=== PATIENT | female | born 1990 | race Two or more races ===

== ENCOUNTER 2017-10-25 12:23 | Inpatient (IN) | payer OTHER ==
--- NOTE | 2017-10-25 13:17 | PDOC ---
History of Present Illness - General History Source: Patient Exam Limitations: No Limitations - History of Present Illness Initial Comments: 10/25/17 13:37 The patient is a 27 year old female, with a significant past medical history of HLD (not on any medications) who presents to the emergency department with RLQ abdominal pain today. Patient reports pain began this morning, cramping, intermittent, 6/10 in severity with associated nausea and diarrhea (nonmucoid, nonbloody). Patient has hx of Cholecystectomy in 2007 and reports pain is similar in nature. Patient denies taking any pain medications for relief and presents to the ED for further evaluation. Patient denies chest pain, headache or dizziness. Patient denies fever, chills, vomit, or constipation. Patient denies dysuria, frequency, urgency or hematuria. Patient denies sick contacts or recent travel. Allergies: NKA Past surgical history: Cholecystectomy, tonsillectomy Social history: None <Ary Mitchell - Last Filed: 10/25/17 18:06> <Jagdeep Abrams - Last Filed: 10/25/17 18:24> - General Chief Complaint: Pain Stated Complaint: ABD PAIN Time Seen by Provider: 10/25/17 13:16 Past History <Ary Mitchell - Last Filed: 10/25/17 18:06> - Past Medical History COPD: No Hypercholesterolemia: Yes - Surgical History Cholecystectomy: Yes - Suicide/Smoking/Psychosocial Hx Smoking History: Never smoked Information on smoking cessation initiated: No Hx Alcohol Use: Yes (OCC) Drug/Substance Use Hx: No Substance Use Type: None <Jagdeep Abrams - Last Filed: 10/25/17 18:24> - Past Medical History Allergies/Adverse Reactions: Allergies Allergy/AdvReac Type Severity Reaction Status Date / Time No Known Allergies Allergy Verified 10/25/17 12:53 Home Medications: Ambulatory Orders NK [No Known Home Medication] 10/25/17 Review of Systems - Review of Systems Able to Perform ROS?: Yes Comments:: 10/25/17 13:37 GENERAL/CONSTITUTIONAL: No fever or chills. No weakness. HEAD, EYES, EARS, NOSE AND THROAT: No change in vision. No ear pain or discharge. No sore throat. CARDIOVASCULAR: No chest pain or shortness of breath. RESPIRATORY: No cough, wheezing, or hemoptysis. GASTROINTESTINAL: + RLQ pain. + nausea, diarrhea. No vomiting or constipation. GENITOURINARY: No dysuria, frequency, or change in urination. MUSCULOSKELETAL: No joint or muscle swelling or pain. No neck or back pain. SKIN: No rash NEUROLOGIC: No headache, vertigo, loss of consciousness, or change in strength/ sensation. ENDOCRINE: No increased thirst. No abnormal weight change. HEMATOLOGIC/LYMPHATIC: No anemia, easy bleeding, or history of blood clots. ALLERGIC/IMMUNOLOGIC: No hives or skin allergy. <Ary Mitchell - Last Filed: 10/25/17 18:06> *Physical Exam - Vital Signs Last Vital Signs Temp Pulse Resp BP Pulse Ox 98.5 F 98 H 18 139/85 100 10/25/17 12:54 10/25/17 12:54 10/25/17 12:54 10/25/17 12:54 10/25/17 12:54 - Physical Exam Comments: 10/25/17 13:37 GENERAL: Awake, alert, and fully oriented, in no acute distress HEAD: No signs of trauma EYES: PERRLA, EOMI, sclera anicteric, conjunctiva clear ENT: Auricles normal inspection, hearing grossly normal, nares patent, oropharynx clear without exudates. Moist mucosa NECK: Normal ROM, supple, no lymphadenopathy, JVD, or masses LUNGS: Breath sounds equal, clear to auscultation bilaterally. No wheezes, and no crackles HEART: Regular rate and rhythm, normal S1 and S2, no murmurs, rubs or gallops ABDOMEN: +Diffuse tenderness. Normoactive bowel sounds. No guarding, no rebound. No masses EXTREMITIES: Normal range of motion, no edema. No clubbing or cyanosis. No cords, erythema, or tenderness NEUROLOGICAL: Cranial nerves II through XII grossly intact. Normal speech, normal gait SKIN: Warm, Dry, normal turgor, no rashes or lesions noted. <Ary Mitchell - Last Filed: 10/25/17 18:06> - Vital Signs Last Vital Signs Temp Pulse Resp BP Pulse Ox 98.5 F 98 H 18 139/85 100 10/25/17 12:54 10/25/17 12:54 10/25/17 12:54 10/25/17 12:54 10/25/17 12:54 <Jagdeep Abrams - Last Filed: 10/25/17 18:24> ED Treatment Course - LABORATORY CBC & Chemistry Diagram: 10/25/17 13:49 10/25/17 13:49 <Ary Mitchell - Last Filed: 10/25/17 18:06> - LABORATORY CBC & Chemistry Diagram: 10/25/17 13:49 10/25/17 13:49 <Jagdeep Abrams - Last Filed: 10/25/17 18:24> Medical Decision Making - Medical Decision Making 10/25/17 18:06 Dr. Schrader paged via phone answering service. Awaiting call back . <Ary Mitchell - Last Filed: 10/25/17 18:06> *DC/Admit/Observation/Transfer - Attestations Scribe Attestion: 10/25/17 13:37 Documentation prepared by Ary Mitchell, acting as medical records library professor for Jagdeep Abrams DO. <Ary Mitchell - Last Filed: 10/25/17 18:06> - Discharge Dispostion Admit: Yes - Attestations Physician Attestion: 10/25/17 13:17 I, Dr. Jagdeep Abrams, attest that this document has been prepared under my direction and personally reviewed by me in its entirety. I further attest, that it accurately reflects all work, treatment, procedures and medical decision -making performed by me. <Jagdeep Abrams - Last Filed: 10/25/17 18:24> Diagnosis at time of Disposition: Elevated liver enzymes Abdominal pain Qualifiers: Abdominal location: generalized Qualified Code(s): R10.84 - Generalized abdominal pain - Discharge Dispostion Condition at time of disposition: Improved
[2017-10-25] MEDS ORDERED: ONDANSETRON 4 MG/2 ML VIAL IVPUSH ONE ×2 (13:24→19:50)
[2017-10-25] MEDS ORDERED: morphine CARPU-JECT 4 MG/1 ML DISP.SYRIN IVPUSH ONE ×2 (13:24→15:05)
[2017-10-25] MEDS ORDERED: ONDANSETRON 4 MG/2 ML VIAL ONE ×2 (13:48→19:52)
[2017-10-25] MEDS ORDERED: morphine SULFATE 4 MG/ML VIAL ONE ×2 (13:48→15:17)
[2017-10-25 14:02] LABS: BASOPHIL 0.2 % (0-2.0); EOSINOPHIL 0.2 % (0-4.5); MCH 27.1 pg (25.7-33.7); MCHC 32.8 g/dl (32.0-36.0); MEAN CELL VOLUME 82.5 fl (80-96); MEAN PLT VOLUME 7.4 fl (7.5-11.1); NEUTROPHILS 87.1 % (42.8-82.8); PLATELET COUNT 348 K/MM3 (134-434); RDW 15.3 % (11.6-15.6); WHITE BLOOD COUNT 10.9 K/mm3 (4.0-10.0)
[2017-10-25 14:05] LABS: URINE APPEARANCE SLCLOUDY; URINE BILIRUBIN NEGATIVE (NEGATIVE); URINE BLOOD 2+ (NEGATIVE); URINE COLOR AMBER; URINE GLUCOSE (UA) NEGATIVE (NEGATIVE); URINE KETONE TRACE (NEGATIVE); URINE NITRITE NEGATIVE (NEGATIVE)
[2017-10-25 14:10] LABS: URINE LEUK ESTERASE 1+ (NEGATIVE); URINE PROTEIN 1+ (NEGATIVE)
[2017-10-25 14:27] LABS: INR 1.15 (0.82-1.09)
[2017-10-25 14:32] LABS: URINE MUCUS MANY; URINE RBC 9 /hpf (0-3); URINE WBC 18 /hpf (3-5)
[2017-10-25 14:37] LABS: ALBUMIN 3.7 g/dl (3.4-5.0); ANION GAP 8 (8-16); CALCIUM 8.8 mg/dL (8.5-10.1); CO2 27 mmol/L (21-32); GLUCOSE,RANDOM 107 mg/dL (74-106); SGPT/ALT 146 U/L (12-78)
[2017-10-25 14:53] LABS: ALK PHOS 129 U/L (45-117); BILIRUBIN,TOTAL 0.8 mg/dL (0.2-1.0); CREATININE 0.6 mg/dL (0.55-1.02); SGOT/AST 323 U/L (15-37); TOT PROT 7.2 g/dl (6.4-8.2)
[2017-10-25] MEDS ORDERED: cefTRIAXone 1 GM/50 ML BAG (PRE-DOCKED) IVPB ONE (17:08)
[2017-10-25] MEDS ORDERED: SODIUM CHLORIDE 1,000 ML IV STA (17:08)
[2017-10-25] MEDS ORDERED: CEFTRIAXONE 1 GM/50 ML BAG ONE (17:16)
[2017-10-25] MEDS ORDERED: HYDROmorphone HCL CARPU-JECT 2 MG/1 ML DISP.SYRIN IVPUSH ONE (18:13)
[2017-10-25] MEDS ORDERED: HYDROmorphone HCL CARPU-JECT 2 MG/1 ML DISP.SYRIN ONE (18:26)
[2017-10-25 21:13] LABS: URINE LEUK ESTERASE NEGATIVE (NEGATIVE)
--- NOTE | 2017-10-25 21:17 | HP ---
Admitting History and Physical - Primary Care Physician PCP: Patrice Schrader - Admission History of Present Illness: 27 year old female, with a significant past medical history of HLD (not on any medications) who presents to the emergency department with RLQ abdominal pain today. Patient reports pain began this morning, cramping, intermittent, 6/10 in severity with associated nausea and diarrhea (nonmucoid, nonbloody). Patient has hx of Cholecystectomy in 2007 and reports pain is similar in nature. Patient denies taking any pain medications for relief and presents to the ED for further evaluation. - Past Medical History Cardiovascular: Yes: Hyperlipdemia ...LMP: 10/18/17 - Past Surgical History Past Surgical History: Yes: Cholecystectomy - Smoking History Smoking history: Never smoked - Alcohol/Substance Use Hx Alcohol Use: Yes (OCC) Home Medications - Allergies Allergies/Adverse Reactions: Allergies Allergy/AdvReac Type Severity Reaction Status Date / Time No Known Allergies Allergy Verified 10/25/17 12:53 - Home Medications Home Medications: Ambulatory Orders NK [No Known Home Medication] 10/25/17 Physical Examination Vital Signs: Vital Signs Temperature 98.5 F 10/25/17 12:54 Pulse Rate 90 10/25/17 18:53 Respiratory Rate 18 10/25/17 18:53 Blood Pressure 129/74 10/25/17 18:53 O2 Sat by Pulse Oximetry (%) 99 10/25/17 18:53 Constitutional: Yes: No Distress HENT: Yes: Atraumatic Neck: Yes: Supple Cardiovascular: Yes: Regular Rate and Rhythm Respiratory: Yes: CTA Bilaterally Gastrointestinal: Yes: Normal Bowel Sounds Extremities: Yes: WNL Neurological: Yes: Alert, Oriented Labs: CBC, BMP 10/25/17 13:49 10/25/17 13:49 Problem List - Problems (1) Abdominal pain Assessment/Plan: npo, ivf prn pain meds Code(s): R10.9 - UNSPECIFIED ABDOMINAL PAIN Qualifiers: Abdominal location: epigastric Qualified Code(s): R10.13 - Epigastric pain (2) Elevated liver enzymes Assessment/Plan: will monitor Code(s): R74.8 - ABNORMAL LEVELS OF OTHER SERUM ENZYMES Assessment/Plan Laboratory Tests 10/25/17 10/25/17 10/25/17 13:49 13:49 13:49 WBC 10.9 H RBC 4.98 Hgb 13.5 Hct 41.1 MCV 82.5 MCH 27.1 MCHC 32.8 RDW 15.3 Plt Count 348 MPV 7.4 L Neutrophils % 87.1 H D Lymphocytes % 7.1 L D Monocytes % 5.4 Eosinophils % 0.2 Basophils % 0.2 PT with INR 13.00 H INR 1.15 H Sodium Potassium Chloride Carbon Dioxide Anion Gap BUN Creatinine Creat Clearance w eGFR Random Glucose Calcium Total Bilirubin AST ALT Alkaline Phosphatase Total Protein Albumin Lipase Serum , Qual Negative Urine Color Urine Appearance Urine pH Ur Specific [place] Urine Protein Urine Glucose (UA) Urine Ketones Urine Blood Urine Nitrite Urine Bilirubin Urine Urobilinogen Ur Leukocyte Esterase Urine WBC (Auto) Urine RBC (Auto) Ur Epithelial Cells Urine Mucus 10/25/17 10/25/17 13:49 13:49 WBC RBC Hgb Hct MCV MCH MCHC RDW Plt Count MPV Neutrophils % Lymphocytes % Monocytes % Eosinophils % Basophils % PT with INR INR Sodium 139 Potassium 3.7 Chloride 104 Carbon Dioxide 27 Anion Gap 8 BUN 9 Creatinine 0.6 Creat Clearance w eGFR > 60 Random Glucose 107 H D Calcium 8.8 Total Bilirubin 0.8 D AST 323 H D ALT 146 H D Alkaline Phosphatase 129 H D Total Protein 7.2 Albumin 3.7 Lipase 200 Serum , Qual Urine Color [place] Urine Appearance Slcloudy Urine pH 5.0 Ur Specific [place] 1.031 Urine Protein 1+ H Urine Glucose (UA) Negative Urine Ketones Trace H Urine Blood 2+ H Urine Nitrite Negative Urine Bilirubin Negative Urine Urobilinogen 2.0 H Ur Leukocyte Esterase Negative Urine WBC (Auto) 18 Urine RBC (Auto) 9 Ur Epithelial Cells Moderate Urine Mucus Many Active Medications Generic Name Dose Route Start Last Admin Trade Name Freq PRN Reason Stop Dose Admin Hydromorphone HCl 1 mg 10/25/17 21:21 10/27/17 18:10 Dilaudid Injection - IVPB 1 mg Q3H PRN Administration PAIN Dextrose/Sodium Chloride 1,000 mls @ 75 mls/hr 10/25/17 21:30 10/27/17 18:14 D5-1/2ns - IV 75 mls/hr ASDIR ISIAH Administration Ondansetron HCl 4 mg 10/25/17 21:21 10/26/17 18:45 Zofran Injection IVPB 4 mg Q4H PRN Administration NAUSEA AND/OR VOMITING Pantoprazole Sodium 40 mg 10/26/17 22:00 10/27/17 09:29 Protonix Iv IVPUSH 40 mg BID ISIAH Administration
[2017-10-25] MEDS: DEXTROSE 5%-0.45% SALINE 1,000 ML IV SCH (22:24)
[2017-10-25] MEDS: HYDROmorphone HCL CARPU-JECT 2 MG/1 ML DISP.SYRIN IVPB PRN (22:36)
[2017-10-26 00:35] VITALS: BMI 34.7
[2017-10-26] MEDS: HYDROmorphone HCL CARPU-JECT 2 MG/1 ML DISP.SYRIN IVPB PRN ×4 (05:59→22:43)
[2017-10-26 09:15] LABS: BASOPHIL 0.4 % (0-2.0); EOSINOPHIL 2.1 % (0-4.5); MCHC 32.7 g/dl (32.0-36.0); MEAN CELL VOLUME 82.5 fl (80-96); MEAN PLT VOLUME 7.5 fl (7.5-11.1); NEUTROPHILS 70.4 % (42.8-82.8); PLATELET COUNT 301 K/MM3 (134-434); WHITE BLOOD COUNT 5.8 K/mm3 (4.0-10.0)
[2017-10-26 09:46] LABS: ALBUMIN 3.3 g/dl (3.4-5.0); ANION GAP 7 (8-16); BILIRUBIN,TOTAL 0.6 mg/dL (0.2-1.0); CALCIUM 8.3 mg/dL (8.5-10.1); CO2 28 mmol/L (21-32); CREATININE 0.5 mg/dL (0.55-1.02); GLUCOSE,RANDOM 93 mg/dL (74-106); SGOT/AST 291 U/L (15-37); SGPT/ALT 284 U/L (12-78); TOT PROT 6.5 g/dl (6.4-8.2)
[2017-10-26 09:47] LABS: ALK PHOS 174 U/L (45-117)
--- NOTE | 2017-10-26 10:52 | CON.GI ---
Consult Consult Specialty:: GI - History of Present Illness History of Present Illness: A healthy 27 yof s/p cholecystectomy in 2007 presents with RUQ pain, elevated AST 2x > ALT, ALP and normal bilirubin. A CT scan of the abdomen and pelvis with IV contrast report describes a 14 mm CBD w/o filling defects, s/p cholecysatectomy, and no other significant hepatobiliary findings. The onset of pain last am, acute, epigastric with nausea, w/o vomiting, fever, chills, jaundice, changes in bowels. Denies dysphagia, odynophagia, melena, chronic etoh , nsaids. At the time of this encounter, c/o epigastric pain, tenderness, negative goodson's. Not in distress. Hungry - History Source History Provided By: Patient, Medical Record - Past Medical History Cardio/Vascular: Yes: Hyperlipdemia ...LMP: 10/18/17 - Past Surgical History Past Surgical History: Yes: Cholecystectomy - Alcohol/Substance Use Hx Alcohol Use: Yes (OCC) - Smoking History Smoking history: Never smoked Home Medications - Allergies Allergies/Adverse Reactions: Allergies Allergy/AdvReac Type Severity Reaction Status Date / Time No Known Allergies Allergy Verified 10/25/17 12:53 - Home Medications Home Medications: Ambulatory Orders NK [No Known Home Medication] 10/25/17 Family Disease History - Family Disease History Family History: Unremarkable Review of Systems Findings/Remarks: please refer to HPI, H&P Physical Exam-GI Vital Signs: Vital Signs Temperature 98.4 F 10/26/17 07:00 Pulse Rate 70 10/26/17 10:12 Respiratory Rate 20 10/26/17 10:12 Blood Pressure 129/84 10/26/17 10:12 O2 Sat by Pulse Oximetry (%) 96 10/26/17 05:20 Constitutional: Yes: Well Nourished, No Distress, Calm Eyes: Yes: Conjunctiva Clear HENT: Yes: Atraumatic Neck: Yes: Supple Cardiovascular: Yes: Regular Rate and Rhythm Respiratory: Yes: Regular Gastrointestinal Inspection: No: Distention ...Auscultate: Yes: Normoactive Bowel Sounds ...Palpate: Yes: Guarding (epigastric), Soft, Tenderness (epigastric), Tenderness, Epigastium. No: Firm/Rigid, Mass, Tenderness, Rebound ...Percussion: No: Fluid Wave Neurological: Yes: Alert, Oriented Labs: CBC, BMP 10/26/17 07:45 10/26/17 07:45 INR, PTT INR 1.15 (0.82-1.09) H 10/25/17 13:49 Laboratory Results - last 24 hr 10/25/17 10/26/17 10/26/17 13:49 07:45 07:45 WBC 5.8 D RBC 4.43 Hgb 12.0 D Hct 36.6 MCV 82.5 MCH 27.0 MCHC 32.7 RDW 15.0 Plt Count 301 MPV 7.5 Neutrophils % 70.4 Lymphocytes % 16.4 D Monocytes % 10.7 H D Eosinophils % 2.1 D Basophils % 0.4 Sodium 140 Potassium 3.4 L Chloride 105 Carbon Dioxide 28 Anion Gap 7 L BUN 4 L D Creatinine 0.5 L Creat Clearance w eGFR > 60 Random Glucose 93 Calcium 8.3 L Total Bilirubin 0.6 D AST 291 H ALT 284 H D Alkaline Phosphatase 174 H D Total Protein 6.5 Albumin 3.3 L Ur Leukocyte Esterase Negative Imaging - Results Cat Scan: Report Reviewed MRI: Pending Problem List - Problems (1) Abdominal pain Code(s): R10.9 - UNSPECIFIED ABDOMINAL PAIN Qualifiers: Abdominal location: generalized Qualified Code(s): R10.84 - Generalized abdominal pain (2) Elevated liver enzymes Code(s): R74.8 - ABNORMAL LEVELS OF OTHER SERUM ENZYMES Assessment/Plan Epigastric pain with transaminitis and elevated ALP. R/o primary, or retained gallstones, CBD, pancreatic lesions, cannot exclude hepatitis and upper GI inflammatory states. Doubt cholangitis at this time Agree with MRCP. Trend hepatic enzymes, ALP, bili, Viral serology, MARK, EGD if MRCP unrevealing. PPI, IVF overnight Monitor for fever, chills will follow d/w the patient
--- NOTE | 2017-10-26 11:19 | EKG ---
Test Reason : Blood Pressure : / mmHG Vent. Rate : 069 BPM Atrial Rate : 069 BPM P-R Int : 148 ms QRS Dur : 088 ms QT Int : 410 ms P-R-T Axes : 049 025 029 degrees QTc Int : 439 ms NORMAL SINUS RHYTHM NORMAL ECG NO PREVIOUS ECGS AVAILABLE Confirmed by CYNTHIA HYDE, BREANNA ([id number]), editor publications MELINA HWANG ([id number]) on 10/26/2017 11:19:01 AM Referred By: SABRINA WEST Confirmed By:BREANNA MARIE MD
[2017-10-26] MEDS: ONDANSETRON 4 MG/2 ML VIAL IVPB PRN ×2 (12:23→18:45)
[2017-10-26] MEDS: DEXTROSE 5%-0.45% SALINE 1,000 ML IV SCH (12:23)
--- NOTE | 2017-10-26 16:01 | CONSULT ---
Consult Consult Specialty:: General Surgery Referred by:: Dr. Schrader Reason for Consultation:: epigastric pain/elevated LFTs - History of Present Illness Chief Complaint: epigastric pain, nausea, chills History of Present Illness: 27yo F with hereditary HLD not on meds for it, s/p mandi ~10 yrs ago, presented with upper abdominal pain radiating from epigastric area to both sides of upper abdomen and to back, since yesterday, associated with nausea but no vomiting, chills and cold sweats, no urinary symptoms, 2 episodes of diarrhea, but had normal BM today. In ER, she had wbc 10.9, elevated AST/ALT/alk phos, normal lipase. CT showed dilated cbd to 14mm. She was admitted to medicine, given IVF and 1g Ceftriaxone (for ?UTI) and kept NPO except some ice chips. Her pain has been better after medication. This am, she had some epigastric pain with radiation up into chest with pressure, but states an EKG was done and ok. - History Source History Provided By: Patient Limitations to Obtaining History: No Limitations - Past Medical History Cardio/Vascular: Yes: Hyperlipdemia Hepatobiliary: Yes: Cholelithiasis, Cholecystitis ...LMP: 10/18/17 ...: No ...: 2 ...Para: 2 - Past Surgical History Past Surgical History: Yes: Cholecystectomy (laparoscopic), Tonsillectomy Additional Surgical History: wisdom teeth out (last one in Jun 2017), abdominoplasty and liposuction of back/upper buttocks in [facility] [place] April 2017; IUD in place 6-7 years - Alcohol/Substance Use Hx Alcohol Use: Yes (social) History of Substance Use: reports: None - Smoking History Smoking history: Never smoked Have you smoked in the past 12 months: No - Social History Usual Living Arrangement: With Spouse ADL: Independent Home Medications - Allergies Allergies/Adverse Reactions: Allergies Allergy/AdvReac Type Severity Reaction Status Date / Time No Known Allergies Allergy Verified 10/25/17 12:53 - Home Medications Home Medications: Ambulatory Orders NK [No Known Home Medication] 10/25/17 Home Medications (free text): mefenamic acid 500mg prn for menstrual cramps ( about 2/day when needed, ~5 in last 2 weeks) - [hepatic-metabolized NSAID, cox1& 2 inhibitor] Family Disease History - Family Disease History Family Disease History: Diabetes: Grandparent (GF - DM; GM - aortic aneurysm, of rupture), Heart Disease: Father (HLD - Pt "has it from him", of internal bleeding, had clogged arteries), Other: Grandparent, Mother (HTN) Review of Systems - Review of Systems Constitutional: reports: Chills, Diaphoresis (cold sweats). denies: Fever Eyes: denies: Blurred Vision, Recent Change in Vision HENT: denies: Difficult Swallowing, Hearing Loss, Nasal Congestion, Throat Pain Neck: denies: Swollen Glands, Tenderness Cardiovascular: denies: Chest Pain, Palpitations Respiratory: reports: SOB (with pain only). denies: Cough Gastrointestinal: reports: Abdominal Pain (with hpi), Nausea (with hpi). denies : Constipation, Diarrhea, Vomiting Genitourinary: denies: Burning, Dysuria Musculoskeletal: reports: Back Pain (occasionally). denies: Joint Pain, Muscle Pain Integumentary: denies: Change in Color, Rash Neurological: reports: Headache (occas). denies: Dizziness Psychiatric: denies: Anxiety, Depression Physical Exam Vital Signs: Vital Signs Temperature 98.4 F 10/26/17 14:37 Pulse Rate 73 10/26/17 14:37 Respiratory Rate 18 10/26/17 14:37 Blood Pressure 135/76 10/26/17 14:37 O2 Sat by Pulse Oximetry (%) 96 10/26/17 05:20 Constitutional: Yes: Well Nourished, No Distress, Calm Eyes: Yes: Conjunctiva Clear, EOM Intact. No: Sclera Icterus HENT: Yes: Atraumatic, Normocephalic Neck: Yes: Supple, Trachea Midline Cardiovascular: Yes: Regular Rate and Rhythm. No: Murmur Respiratory: Yes: Regular, CTA Bilaterally Gastrointestinal: Yes: Normal Bowel Sounds, Soft, Tenderness (mild RUQ), Tenderness, Epigastrium, Other (healed abdominoplasty scars). No: Distention, Tenderness, Rebound ...Rectal Exam: Yes: Deferred, Other (right buttock with a few small mobile firm areas palpated, one 4-5cm area in right mid-buttock feels mobile, firm, nontender, no overlying erythema or skin changes) Renal/: No: CVA Tenderness - Left, CVA Tenderness - Right Musculoskeletal: No: Joint Stiffness, Joint Swelling Extremities: No: Cool, Cyanosis Edema: No Peripheral Pulses WNL: Yes Integumentary: No: Jaundice, Rash Neurological: Yes: Alert, Oriented Psychiatric: Yes: Alert, Oriented Labs: CBC, BMP 10/26/17 07:45 10/26/17 07:45 CMP Sodium 140 mmol/L (136-145) 10/26/17 07:45 Potassium 3.4 mmol/L (3.5-5.1) L 10/26/17 07:45 Chloride 105 mmol/L (98-107) 10/26/17 07:45 Carbon Dioxide 28 mmol/L (21-32) 10/26/17 07:45 Anion Gap 7 (8-16) L 10/26/17 07:45 BUN 4 mg/dL (7-18) L D 10/26/17 07:45 Creatinine 0.5 mg/dL (0.55-1.02) L 10/26/17 07:45 Creat Clearance w eGFR > 60 (>60) 10/26/17 07:45 Random Glucose 93 mg/dL (74-106) 10/26/17 07:45 Calcium 8.3 mg/dL (8.5-10.1) L 10/26/17 07:45 Total Bilirubin 0.6 mg/dL (0.2-1.0) D 10/26/17 07:45 AST 291 U/L (15-37) H 10/26/17 07:45 ALT 284 U/L (12-78) H D 10/26/17 07:45 Alkaline Phosphatase 174 U/L (45-117) H D 10/26/17 07:45 Total Protein 6.5 g/dl (6.4-8.2) 10/26/17 07:45 Albumin 3.3 g/dl (3.4-5.0) L 10/26/17 07:45 Lipase 200 U/L (73-393) 10/25/17 13:49 Serum , Qual Negative 10/25/17 13:49 wbc down from 10.9 AST down slightly ALT/alk phos up slightly lipase not repeated K+ low Urine Test Results Urine Color Meagan 10/25/17 13:49 Urine Appearance Slcloudy 10/25/17 13:49 Urine pH 5.0 (5.0-8.0) 10/25/17 13:49 Ur Specific [place] 1.031 (1.001-1.035) 10/25/17 13:49 Urine Protein 1+ (NEGATIVE) H 10/25/17 13:49 Urine Glucose (UA) Negative (NEGATIVE) 10/25/17 13:49 Urine Ketones Trace (NEGATIVE) H 10/25/17 13:49 Urine Blood 2+ (NEGATIVE) H 10/25/17 13:49 Urine Nitrite Negative (NEGATIVE) 10/25/17 13:49 Urine Bilirubin Negative (NEGATIVE) 10/25/17 13:49 Ur Leukocyte Esterase Negative (NEGATIVE) 10/25/17 13:49 Ur Epithelial Cells Moderate /HPF (FEW) 10/25/17 13:49 Urine Mucus Many 10/25/17 13:49 UA contaminated (mod epi's) Imaging - Results Cat Scan: Report Reviewed (cbd 1.4cm, s/p cholecystectomy, no appendicitis, no obstruction, no diverticulitis; incompletely imaged moderate-sized collection with fat-fluid level in right buttock, multiple other fatty abnormalities, possibly postsurgical), Image Reviewed MRI: Pending EKG: Report Reviewed (normal) Problem List - Problems (1) Elevated liver enzymes Assessment/Plan: admitted to medicine s/p cholecystectomy uses NSAID monthly and in last 2 weeks MRCP pending to r/o cbd stone if negative, GI plans upper endoscopy tomorrow consider hepatitis screen trend labs, including lipase head filter press tender mostly epigastric, less RUQ would keep NPO/IVF until studies read and interventions completed as indicated, pain/tenderness resolve Thank you for the opportunity to participate in the care of this patient. Code(s): R74.8 - ABNORMAL LEVELS OF OTHER SERUM ENZYMES (2) Abdominal pain Assessment/Plan: may be secondary to retained CBD stone, PUD/GERD, could be NSAID-related UA contaminated with no LE/nitrite - no urinary symptoms, no evidence of UTI MRCP pending upper endoscopy +/- ERCP pending NPO/IVF until above completed and pain/tenderness resolve Code(s): R10.9 - UNSPECIFIED ABDOMINAL PAIN Qualifiers: Abdominal location: epigastric Qualified Code(s): R10.13 - Epigastric pain (3) S/P cholecystectomy Code(s): Z90.49 - ACQUIRED ABSENCE OF OTHER SPECIFIED PARTS OF DIGESTIVE TRACT (4) S/P cosmetic plastic surgery Assessment/Plan: findings on CT in fat of buttocks - no pain or tenderness, no overlying skin changes pt informed that she should consider following up with a plastic surgeon if any of the above develop, will need plastic surgery consultation/referral Code(s): Z98.890 - OTHER SPECIFIED POSTPROCEDURAL STATES
[2017-10-26] MEDS: PANTOPRAZOLE SODIUM 40 MG VIAL IVPUSH SCH (21:15)
--- NOTE | 2017-10-26 22:43 | PN ---
Progress Note, Physician - Current Medication List Current Medications: Active Medications Hydromorphone HCl (Dilaudid Injection -) 1 mg IVPB Q3H PRN PRN Reason: PAIN Last Admin: 10/26/17 15:38 Dose: 1 mg Dextrose/Sodium Chloride (D5-1/2ns -) 1,000 mls @ 75 mls/hr IV ASDIR ISIAH Last Admin: 10/26/17 12:23 Dose: 75 mls/hr Ondansetron HCl (Zofran Injection) 4 mg IVPB Q4H PRN PRN Reason: NAUSEA AND/OR VOMITING Last Admin: 10/26/17 18:45 Dose: 4 mg Pantoprazole Sodium (Protonix Iv) 40 mg IVPUSH BID ISIAH Last Admin: 10/26/17 21:15 Dose: 40 mg - Objective Vital Signs: Vital Signs Temperature 98.4 F 10/26/17 22:28 Pulse Rate 80 10/26/17 22:28 Respiratory Rate 20 10/26/17 22:28 Blood Pressure 130/70 10/26/17 22:28 O2 Sat by Pulse Oximetry (%) 96 10/26/17 05:20 Constitutional: Yes: No Distress HENT: Yes: Atraumatic Neck: Yes: Supple Cardiovascular: Yes: Regular Rate and Rhythm Respiratory: Yes: CTA Bilaterally Gastrointestinal: Yes: Normal Bowel Sounds Extremities: Yes: WNL Neurological: Yes: Alert, Oriented Labs: CBC, BMP 10/26/17 07:45 10/26/17 07:45 INR, PTT INR 1.15 (0.82-1.09) H 10/25/17 13:49 Problem List - Problems (1) Abdominal pain Assessment/Plan: mri done report pending lfts went up keep npo Code(s): R10.9 - UNSPECIFIED ABDOMINAL PAIN Qualifiers: Abdominal location: epigastric Qualified Code(s): R10.13 - Epigastric pain (2) Elevated liver enzymes Assessment/Plan: trending up keep npo Code(s): R74.8 - ABNORMAL LEVELS OF OTHER SERUM ENZYMES
[2017-10-27] MEDS ORDERED: ACETAMINOPHEN 325 MG TABLET (FP) PO ONE (01:00)
[2017-10-27] MEDS: HYDROmorphone HCL CARPU-JECT 2 MG/1 ML DISP.SYRIN IVPB PRN ×4 (02:27→23:46)
[2017-10-27 08:06] LABS: BASOPHIL 0.8 % (0-2.0); EOSINOPHIL 3.8 % (0-4.5); MCH 27.4 pg (25.7-33.7); MCHC 33.2 g/dl (32.0-36.0); MEAN CELL VOLUME 82.6 fl (80-96); MEAN PLT VOLUME 7.5 fl (7.5-11.1); PLATELET COUNT 298 K/MM3 (134-434); WHITE BLOOD COUNT 4.8 K/mm3 (4.0-10.0)
[2017-10-27 08:29] LABS: ALBUMIN 3.1 g/dl (3.4-5.0); ANION GAP 6 (8-16); CO2 31 mmol/L (21-32); GLUCOSE,RANDOM 80 mg/dL (74-106); SGOT/AST 95 U/L (15-37); SGPT/ALT 196 U/L (12-78)
[2017-10-27 08:31] LABS: ALK PHOS 141 U/L (45-117); BILIRUBIN,DIRECT < 0.2 mg/dL (0.0-0.2); BILIRUBIN,TOTAL 0.4 mg/dL (0.2-1.0); CREATININE 0.4 mg/dL (0.55-1.02); TOT PROT 6.2 g/dl (6.4-8.2)
[2017-10-27] MEDS: PANTOPRAZOLE SODIUM 40 MG VIAL IVPUSH SCH ×2 (09:29→21:39)
--- NOTE | 2017-10-27 11:20 | PN ---
Progress Note, Physician Chief Complaint: epigastric pain History of Present Illness: No overnight events. MRCP done last night, just read this am as no intraductal stones. Pt just took a shower. Minimal pain. Abdomen less distended. No nausea or fevers. Pt is hungry. - Current Medication List Current Medications: Active Medications Hydromorphone HCl (Dilaudid Injection -) 1 mg IVPB Q3H PRN PRN Reason: PAIN Last Admin: 10/27/17 09:28 Dose: 1 mg Dextrose/Sodium Chloride (D5-1/2ns -) 1,000 mls @ 75 mls/hr IV ASDIR ISAIH Last Admin: 10/26/17 12:23 Dose: 75 mls/hr Ondansetron HCl (Zofran Injection) 4 mg IVPB Q4H PRN PRN Reason: NAUSEA AND/OR VOMITING Last Admin: 10/26/17 18:45 Dose: 4 mg Pantoprazole Sodium (Protonix Iv) 40 mg IVPUSH BID ISIAH Last Admin: 10/27/17 09:29 Dose: 40 mg - Objective Vital Signs: Vital Signs Temperature 98.3 F 10/27/17 06:00 Pulse Rate 68 10/27/17 06:00 Respiratory Rate 20 10/27/17 06:00 Blood Pressure 136/79 10/27/17 06:00 O2 Sat by Pulse Oximetry (%) 96 10/26/17 05:20 Constitutional: Yes: Well Nourished, No Distress, Calm Eyes: Yes: Conjunctiva Clear, EOM Intact. No: Sclera Icterus Gastrointestinal: Yes: Soft, Tenderness, Epigastrium (mild only, less than yesterday). No: Distention Genitourinary: No: CVA Tenderness - Left, CVA Tenderness - Right Extremities: No: Cool, Cyanosis Edema: No Integumentary: No: Jaundice, Rash Neurological: Yes: Alert, Oriented. No: Unsteady Gait Labs: CBC, BMP 10/27/17 06:30 10/27/17 06:30 CMP Sodium 139 mmol/L (136-145) 10/27/17 06:30 Potassium 3.3 mmol/L (3.5-5.1) L 10/27/17 06:30 Chloride 102 mmol/L (98-107) 10/27/17 06:30 Carbon Dioxide 31 mmol/L (21-32) 10/27/17 06:30 Anion Gap 6 (8-16) L 10/27/17 06:30 BUN 3 mg/dL (7-18) L D 10/27/17 06:30 Creatinine 0.4 mg/dL (0.55-1.02) L 10/27/17 06:30 Creat Clearance w eGFR > 60 (>60) 10/27/17 06:30 Random Glucose 80 mg/dL (74-106) 10/27/17 06:30 Calcium 8.0 mg/dL (8.5-10.1) L 10/27/17 06:30 Total Bilirubin 0.4 mg/dL (0.2-1.0) D 10/27/17 06:30 Direct Bilirubin < 0.2 mg/dL (0.0-0.2) 10/27/17 06:30 AST 95 U/L (15-37) H D 10/27/17 06:30 ALT 196 U/L (12-78) H D 10/27/17 06:30 Alkaline Phosphatase 141 U/L (45-117) H 10/27/17 06:30 Total Protein 6.2 g/dl (6.4-8.2) L 10/27/17 06:30 Albumin 3.1 g/dl (3.4-5.0) L 10/27/17 06:30 Lipase 189 U/L (73-393) 10/27/17 06:30 - ....Imaging MRI: Report Reviewed, Image Reviewed Problem List - Problems (1) Elevated liver enzymes Assessment/Plan: epigastric pain improved s/p cholecystectomy MRCP with no cbd stones/filling defects, dilated to 1cm with smooth distal tapering GI plans upper endoscopy tomorrow LFTs decreasing, lipase ok trend labs clear liquids today, NPO after midnight for scope Code(s): R74.8 - ABNORMAL LEVELS OF OTHER SERUM ENZYMES (2) Abdominal pain Code(s): R10.9 - UNSPECIFIED ABDOMINAL PAIN Qualifiers: Abdominal location: epigastric Qualified Code(s): R10.13 - Epigastric pain (3) S/P cholecystectomy Code(s): Z90.49 - ACQUIRED ABSENCE OF OTHER SPECIFIED PARTS OF DIGESTIVE TRACT (4) S/P cosmetic plastic surgery Code(s): Z98.890 - OTHER SPECIFIED POSTPROCEDURAL STATES
--- NOTE | 2017-10-27 11:30 | PN ---
Progress Note, Physician History of Present Illness: Clinically better. Pain improved. MRCP no filling defects. CBD 1 cm, smooth distal tapering. Aparently, takes NSAIDs weekly - Current Medication List Current Medications: Active Medications Hydromorphone HCl (Dilaudid Injection -) 1 mg IVPB Q3H PRN PRN Reason: PAIN Last Admin: 10/27/17 09:28 Dose: 1 mg Dextrose/Sodium Chloride (D5-1/2ns -) 1,000 mls @ 75 mls/hr IV ASDIR ISIAH Last Admin: 10/26/17 12:23 Dose: 75 mls/hr Ondansetron HCl (Zofran Injection) 4 mg IVPB Q4H PRN PRN Reason: NAUSEA AND/OR VOMITING Last Admin: 10/26/17 18:45 Dose: 4 mg Pantoprazole Sodium (Protonix Iv) 40 mg IVPUSH BID [facility] Last Admin: 10/27/17 09:29 Dose: 40 mg - Objective Vital Signs: Vital Signs Temperature 98.3 F 10/27/17 06:00 Pulse Rate 68 10/27/17 06:00 Respiratory Rate 20 10/27/17 06:00 Blood Pressure 136/79 10/27/17 06:00 O2 Sat by Pulse Oximetry (%) 96 10/26/17 05:20 Constitutional: Yes: Well Nourished, No Distress, Calm Eyes: Yes: Conjunctiva Clear HENT: Yes: Atraumatic Neck: Yes: Supple Cardiovascular: Yes: Regular Rate and Rhythm Respiratory: Yes: Regular Gastrointestinal: Yes: Normal Bowel Sounds, Soft. No: Melena, Rectal Bleeding, Tenderness, Vomiting Neurological: Yes: Alert, Oriented Labs: CBC, BMP 10/27/17 06:30 10/27/17 06:30 INR, PTT INR 1.15 (0.82-1.09) H 10/25/17 13:49 Laboratory Results - last 24 hr 10/27/17 10/27/17 06:30 06:30 WBC 4.8 RBC 4.41 Hgb 12.1 Hct 36.4 MCV 82.6 MCH 27.4 MCHC 33.2 RDW 15.0 Plt Count 298 MPV 7.5 Neutrophils % 54.0 D Lymphocytes % 29.0 D Monocytes % 12.4 H Eosinophils % 3.8 D Basophils % 0.8 Sodium 139 Potassium 3.3 L Chloride 102 Carbon Dioxide 31 Anion Gap 6 L BUN 3 L D Creatinine 0.4 L Creat Clearance w eGFR > 60 Random Glucose 80 Calcium 8.0 L Total Bilirubin 0.4 D Direct Bilirubin < 0.2 AST 95 H D ALT 196 H D Alkaline Phosphatase 141 H Total Protein 6.2 L Albumin 3.1 L Lipase 189 Problem List - Problems (1) Abdominal pain Code(s): R10.9 - UNSPECIFIED ABDOMINAL PAIN Qualifiers: Abdominal location: epigastric Qualified Code(s): R10.13 - Epigastric pain (2) Elevated liver enzymes Code(s): R74.8 - ABNORMAL LEVELS OF OTHER SERUM ENZYMES Assessment/Plan Clinically improving Hx of chronic NSAID use Non-obstructive liver enzymes, ALP, bili Plan EGD in AM to r/o upper inflammatory states, NSAID-related lesions clear liquid diet today No NSAIDs
[2017-10-27] MEDS: DEXTROSE 5%-0.45% SALINE 1,000 ML IV SCH (18:14)
--- NOTE | 2017-10-27 20:03 | PN ---
Progress Note, Physician - Current Medication List Current Medications: Active Medications Hydromorphone HCl (Dilaudid Injection -) 1 mg IVPB Q3H PRN PRN Reason: PAIN Last Admin: 10/27/17 18:10 Dose: 1 mg Dextrose/Sodium Chloride (D5-1/2ns -) 1,000 mls @ 75 mls/hr IV ASDIR ISIAH Last Admin: 10/27/17 18:14 Dose: 75 mls/hr Ondansetron HCl (Zofran Injection) 4 mg IVPB Q4H PRN PRN Reason: NAUSEA AND/OR VOMITING Last Admin: 10/26/17 18:45 Dose: 4 mg Pantoprazole Sodium (Protonix Iv) 40 mg IVPUSH BID ISIAH Last Admin: 10/27/17 09:29 Dose: 40 mg - Objective Vital Signs: Vital Signs Temperature 98.3 F 10/27/17 14:41 Pulse Rate 83 10/27/17 14:41 Respiratory Rate 18 10/27/17 14:41 Blood Pressure 129/84 10/27/17 14:41 O2 Sat by Pulse Oximetry (%) 96 10/26/17 05:20 Constitutional: Yes: No Distress HENT: Yes: Atraumatic Neck: Yes: Supple Cardiovascular: Yes: Regular Rate and Rhythm Respiratory: Yes: CTA Bilaterally Gastrointestinal: Yes: Normal Bowel Sounds Extremities: Yes: WNL Neurological: Yes: Alert, Oriented Labs: CBC, BMP 10/27/17 06:30 10/27/17 06:30 INR, PTT INR 1.15 (0.82-1.09) H 10/25/17 13:49 Problem List - Problems (1) Abdominal pain Assessment/Plan: clear liquid diet egd in am prn pain meds Code(s): R10.9 - UNSPECIFIED ABDOMINAL PAIN Qualifiers: Abdominal location: epigastric Qualified Code(s): R10.13 - Epigastric pain (2) Elevated liver enzymes Assessment/Plan: will monitor chronic nsaid use Code(s): R74.8 - ABNORMAL LEVELS OF OTHER SERUM ENZYMES
[2017-10-28] MEDS: HYDROmorphone HCL CARPU-JECT 2 MG/1 ML DISP.SYRIN IVPB PRN ×2 (05:48→10:18)
[2017-10-28] MEDS: DEXTROSE 5%-0.45% SALINE 1,000 ML IV SCH (05:48)
[2017-10-28] MEDS ORDERED: LIDOCAINE HCL/PF 2% SDV 5ML VIAL ONE (09:06)
[2017-10-28] MEDS ORDERED: PROPOFOL 20 ML ONE ×3 (09:06)
--- NOTE | 2017-10-28 09:25 | PROC ---
Endoscopy Procedure Endoscopy procedure completed. Please see scanned procedure report. s/p EGD, mild gastritis otherwise normal. Random biopsies taken
--- NOTE | 2017-10-28 09:42 | PN ---
Progress Note (short form) - Note Progress Note: Pt off floor in endoscopy. No new labs this am. No fevers. + BM recorded yesterday. Will see tomorrow. Daja HYDE Problem List - Problems (1) Elevated liver enzymes Code(s): R74.8 - ABNORMAL LEVELS OF OTHER SERUM ENZYMES (2) Abdominal pain Code(s): R10.9 - UNSPECIFIED ABDOMINAL PAIN Qualifiers: Abdominal location: epigastric Qualified Code(s): R10.13 - Epigastric pain (3) S/P cholecystectomy Code(s): Z90.49 - ACQUIRED ABSENCE OF OTHER SPECIFIED PARTS OF DIGESTIVE TRACT (4) S/P cosmetic plastic surgery Code(s): Z98.890 - OTHER SPECIFIED POSTPROCEDURAL STATES
[2017-10-28] MEDS: PANTOPRAZOLE SODIUM 40 MG VIAL IVPUSH SCH (10:14)
[2017-10-28 14:49] VITALS: BP 99/63; PULSE 77; TEMP 98.2
--- NOTE | 2017-10-28 16:47 | DS ---
Physical Examination Vital Signs: Vital Signs Temperature 98.2 F 10/28/17 14:47 Pulse Rate 77 10/28/17 14:47 Respiratory Rate 20 10/28/17 14:47 Blood Pressure 99/63 10/28/17 14:47 O2 Sat by Pulse Oximetry (%) 100 10/28/17 10:18 Constitutional: Yes: No Distress HENT: Yes: Atraumatic Neck: Yes: Supple Cardiovascular: Yes: Regular Rate and Rhythm Respiratory: Yes: CTA Bilaterally Gastrointestinal: Yes: Normal Bowel Sounds Extremities: Yes: WNL Neurological: Yes: Alert, Oriented Labs: CBC, BMP 10/27/17 06:30 10/27/17 06:30 Discharge Summary Reason For Visit: ELEVATED LIVER EMZYMES, ABD PAIN Current Active Problems Abdominal pain (Acute) Elevated liver enzymes (Acute) S/P cholecystectomy (Acute) S/P cosmetic plastic surgery (Acute) Condition: Improved - Instructions - Home Medications Comprehensive Discharge Medication List: Ambulatory Orders Pantoprazole Sodium [Protonix -] 40 mg PO DAILY #30 tablet.ec 10/28/17 dc home fu gai/pmd 1-2 weeks
--- NOTE | 2017-10-28 17:41 | PN ---
Progress Note (short form) - Note Progress Note: The patient is being discharged. OK to return to work on Wednesday if no new developments, or acute GI issues over the weekend. Follow up as OP for biopsy results and liver enzymes discussed with the patient and she verbalized understanding. Problem List - Problems (1) Abdominal pain Code(s): R10.9 - UNSPECIFIED ABDOMINAL PAIN Qualifiers: Abdominal location: epigastric Qualified Code(s): R10.13 - Epigastric pain (2) Elevated liver enzymes Code(s): R74.8 - ABNORMAL LEVELS OF OTHER SERUM ENZYMES
--- NOTE | 2017-10-29 17:38 | PATH ---
Surgical Pathology Report Patient Name: CHRIS FREEMAN [facility]. Rec. #: [id number] /Age/Gender: 1990 (Age: 27) / F Account: [id number] Location: [address] [place] [address]/[facility] Taken: 10/28/2017 Received: 10/28/2017 Reported: 10/29/2017 Physicians: Mariah Kruger M.D. Specimen(s) Received A: BX DUODENUM B: BX ANTRUM Clinical History Preoperative diagnosis: Epigastric pain Postoperative diagnosis: Same Final Diagnosis A. DUODENUM, SECOND PORTION, BIOPSY: DUODENAL MUCOSA WITHOUT SIGNIFICANT PATHOLOGIC FINDINGS. B. STOMACH, ANTRUM, BIOPSY: GASTRIC ANTRAL MUCOSA WITH MILD CHRONIC GASTRITIS. DIFF-QUIK SPECIAL STAIN IS NEGATIVE FOR HELICOBACTER-LIKE ORGANISMS. Electronically Signed Brenna Funes M.D. Gross Description A. Received in formalin, labeled "biopsy duodenum second portion" is a escobedo, irregular portion of soft tissue measuring 0.4 cm. in greatest dimension. The specimen is submitted in toto in one cassette. B. Received in formalin, labeled "biopsy antrum" are 2 escobedo, irregular portions of soft tissue measuring 0.2 and 0.7 cm. in greatest dimension. The specimens are submitted in toto in one cassette. 10/28/2017 [facility]10/28/2017
== END 2017-10-28 18:18 | disposition home or self-care (01) | DRG 251 ==
LOC: JER 12:23 → JERBED 18:24 → J6S 21:03
PROVIDERS: ADMIT Internal Medicine; ATTEND Internal Medicine
PROC: 0DD68ZX Extraction of Stomach, Via Natural or Artificial Opening Endoscopic, Diagnostic (ICD-10-PCS; 2017-10-28)
PROC: 0DD98ZX Extraction of Duodenum, Via Natural or Artificial Opening Endoscopic, Diagnostic (ICD-10-PCS; principal; 2017-10-28 11:30)
DX: R10.31 Right lower quadrant pain (principal); R74.8 Abnormal levels of other serum enzymes; E78.5 Hyperlipidemia, unspecified; K29.50 Unspecified chronic gastritis without bleeding
CPT/HCPCS: 36415; 74177-TC; 74182-TC; 80053; 81003; 81015; 82248; 83690; 84703; 85025; 85610; 86038; 86704; 86706; 86708; 86803; 87086; 87340; 88305-TC; 93005; 93010; 99284-25; Q9967

== ENCOUNTER 2022-06-17 06:29 | Inpatient (IN) | payer OTHER ==
[2022-06-17 06:56] VITALS: BMI 37.1
[2022-06-17 07:25] VITALS: TEMP 98
[2022-06-17] MEDS ORDERED: ONDANSETRON 4 MG/2 ML VIAL IVPUSH ONE (08:26)
[2022-06-17 08:27] LABS: BASO % 0.5 % (0-2.0); EOS % 1.2 % (0-4.5); HEMATOCRIT 36.9 % (32.4-45.2); HEMOGLOBIN 12.6 GM/dL (10.7-15.3); MCH 27.9 pg (25.7-33.7); MCHC 34.3 g/dl (32.0-36.0); MEAN CELL VOLUME 81.3 fl (80-96); MEAN PLT VOLUME 7.6 fl (7.5-11.1); MONO % 8.1 % (3.8-10.2); NEUT % 68.2 % (42.8-82.8); PLATELET COUNT 352 10^3/uL (134-434); RBC 4.53 M/mm3 (3.60-5.2); RDW 13.9 % (11.6-15.6); WHITE BLOOD COUNT 9.6 K/mm3 (4.0-10.0)
[2022-06-17 08:30] LABS: CHLORIDE 106 mmol/L (98-107); SODIUM 141 mmol/L (136-145)
[2022-06-17 08:33] LABS: ALBUMIN 3.4 g/dl (3.4-5.0); ANION GAP 12 MMOL/L (8-16); BLOOD UREA NITROGEN 8.6 mg/dL (7-18); CALCIUM 9.1 mg/dL (8.5-10.1); CO2 24 mmol/L (21-32); GLUCOSE,RANDOM 92 mg/dL (74-106); LIPASE 174 U/L (73-393)
[2022-06-17 08:36] LABS: CREATININE 0.6 mg/dL (0.55-1.3); SGOT/AST 25 U/L (15-37); SGPT/ALT 29 U/L (13-61)
[2022-06-17] MEDS ORDERED: ONDANSETRON 4 MG/2 ML VIAL ONE (08:36)
[2022-06-17 08:37] LABS: BILIRUBIN,TOTAL 0.5 mg/dL (0.2-1)
[2022-06-17 08:38] LABS: TOT PROT 6.9 g/dl (6.4-8.2)
[2022-06-17 08:39] LABS: ALK PHOS 61 U/L (45-117)
[2022-06-17] MEDS ORDERED: SODIUM CHLORIDE 0.9% 500 ML INFUS.BAG IV ONE (09:22)
[2022-06-17] MEDS ORDERED: ACETAMINOPHEN 1000 MG/100 ML BAG IVPB ONE (10:53)
[2022-06-17] MEDS ORDERED: ACETAMINOPHEN INJECTION 100 ML IVPB ONE (11:02)
[2022-06-17 12:28] LABS: N-TERMINAL BNP 5261.5 pg/ml (5-125)
[2022-06-17] MEDS ORDERED: LISINOPRIL 20 MG TABLET PO SCH (14:00)
[2022-06-17 14:15] VITALS: BP 159/113; PULSE 124; RESP 18
[2022-06-18] MEDS ORDERED: ENOXAPARIN NA (PORCINE) 40 MG/0.4 ML DISP.SYRIN SQ SCH (10:00)
[2022-06-18] MEDS ORDERED: PANTOPRAZOLE 40 MG TABLET PO SCH (10:00)
== END 2022-06-17 14:15 | disposition left against medical advice (07) | DRG 207 ==
LOC: JER 06:29 → JERBED 11:26
PROVIDERS: ADMIT Internal Medicine; ATTEND Internal Medicine
DX: I27.20 Pulmonary hypertension, unspecified (principal); I50.9 Heart failure, unspecified; R06.02 Shortness of breath; R00.0 Tachycardia, unspecified; R00.2 Palpitations; R05.9 Cough, unspecified; R07.81 Pleurodynia; Z68.37 Body mass index [BMI] 37.0-37.9, adult; E66.3 Overweight
CPT/HCPCS: 36415; 71046-TC-FY; 71275-TC; 80053; 83690; 83880; 84439; 84443; 84484; 84702; 85025; 85379; 93005; 93010; 99285-25; C9803-CS; Q9967; U0003; U0005